=== PATIENT | female | born 2000 | race Two or more races ===

== ENCOUNTER 2024-05-02 14:34 | Outpatient (CLI) | payer OTHER | END 2024-05-02 14:37 | disposition home or self-care (01) | LOC: SONOGRAMA 14:34 | PROVIDERS: ATTEND Pathology Anatomic Pathology & Clinical Pathology | DX: D11.0 Benign neoplasm of parotid gland (principal); D37.030 Neoplasm of uncertain behavior of the parotid salivary glands ==